=== PATIENT | female | born 1990 | race African-American/Black ===

== ENCOUNTER 2017-03-18 21:02 | Emergency (ER) | payer SELFPAY ==
[~2017-03-18] VITALS: Ht 147.3 cm; Wt 81.1 kg
[2017-03-18 21:50] LABS: HEMATOCRIT 36.7 % (36.0-46.0); MCH 31.6 PG (29.0-34.0); MCHC 34.9 G/DL (30.0-36.0); MCV 90.6 FL (83-99); MEAN PLAT.VOLUME 11.2 uM^3 (9.5-12.4); PLATELET COUNT 247 K/uL (156-360); RBC DIS.WIDTH-CV 12.4 % (11.8-14.6); RBC DIS.WIDTH-SD 41.3 % (39-53); RED BLOOD COUNT 4.05 M/uL (3.80-5.20); WHITE BLOOD COUNT 5.8 K/uL (4.1-10.2)
[2017-03-18 22:00] LABS: CHLORIDE 107 mEq/L (99-109); POTASSIUM 4.2 mEq/L (3.7-5.4); SODIUM 141 mEq/L (136-147)
[2017-03-18 22:02] LABS: GLUCOSE 87 mg/dL (70-99)
[2017-03-18 22:04] LABS: ANION GAP 12 MEQ/L (2-14)
[2017-03-18 22:07] LABS: UREA NITROGEN (BUN) 8 mg/dL (9-23)
[2017-03-18 22:08] LABS: GFR ESTIMATE (CALCULATED) > 59 mL/min/
[2017-03-18 22:42] LABS: TROP-I INTERPRETATION NEGATIVE; TROPONIN-I < 0.01 ng/mL (0.0-0.30)
[2017-03-19] MEDS ORDERED: ATARAX,VISTARIL50 MG PO (02:29)
[2017-03-19 02:39] VITALS: BP 113/75
== END 2017-03-19 02:40 | disposition home or self-care (01) ==
LOC: EME 21:02
PROVIDERS: Physician Assistant
DX: R07.9 Chest pain, unspecified (principal); F41.9 Anxiety disorder, unspecified; R51 Headache; R79.1 Abnormal coagulation profile; K80.20 Calculus of gallbladder without cholecystitis without obstruction
CPT/HCPCS: 71020; 71275; 80048; 84484; 85027; 85379; 93005; 99281; 99284; Q0177